=== PATIENT | female | born 1965 | race Caucasian/White ===

== ENCOUNTER 2019-05-18 16:43 | Emergency (ER) | payer OTHER, SELFPAY ==
[2019-05-18 17:03] VITALS: BP 155/70; PULSE 80; RESP 20; TEMP 36.6; O2SAT 100
--- NOTE | 2019-05-18 17:53 | ED.URI ---
HPI - URI/Sore Throat General Chief Complaint: Upper Respiratory Infection Stated Complaint: Cough and Congestion Time Seen by Provider: 05/18/19 17:53 Source: patient and RN notes reviewed Mode of arrival: ambulatory Limitations: no limitations History of Present Illness HPI Narrative: 54 year old female who presents to [facility] care with complaints of head congestion, nasal drainage, cough, some shortness of breath and wheezing for the past 2 days. Patient states long history of tobacco abuse states likely history of COPD/ emphysema. Patient states bilateral ear pain, and generalized body aches with increase feelings of being tired. Patient states that she did not have a flu immunization this season. Lungs clear to auscultation but decreased, no wheezing noted, SAO2 100% on room air, no fever, chills or sweats reported. MD elicited complaint: cough, rhinorrhea and nasal congestion Pertinent past history: COPD (states likely history of COPD) Onset (ago): day(s) (2) Consistency: progressively worsening Severity: moderate Pain scale (0-10): 5 Able to tolerate fluids by mouth: Yes Exacerbating factors: exertion, deep breaths and supine positioning Relieving factors: rest (helps) Associated symptoms: myalgias, rhinorrhea, nasal congestion, cough, shortness of breath, ear pain and other (states intermittent wheezing) Treatments prior to arrival: none Related Data Home Medications Medication Instructions Recorded Confirmed lisinopril 20 mg PO DAILY 05/18/19 05/18/19 ranitidine HCl 150 mg PO BID 05/18/19 05/18/19 Allergies Allergy/AdvReac Type Severity Reaction Status Date / Time No Known Allergies Allergy Verified 05/18/19 17:11 Review of Systems Review of Systems: Narrative: CONSTITUTIONAL: Denies fever, chills, or sweats. EYES: Denies visual changes, redness, or discharge. ENT:positive rhinorrhea, congestion,no sore throat, bilateral otalgia. CARDIOVASCULAR:no chest pain, palpitations, or edema. RESPIRATORY: Positive cough or dyspnea with exertion. GASTROINTESTINAL: Denies abdominal pain, nausea, vomiting, or diarrhea. GENITOURINARY: Denies dysuria or hematuria. SKIN: Denies rash or itching. MUSCULOSKELETAL: chronic back pain, joint pain, body aches NEUROLOGIC: Denies headache, numbness, or weakness. PSYCHIATRIC: Denies anxiety or depression. All systems reviewed & are unremarkable except as noted in HPI and below PMFSH Past Medical History Medical History (Updated 05/22/19 @ 20:58 by Tammi Christina NP) Chronic neck and back pain History of gastroesophageal reflux (GERD) Hypertension Hypothyroidism Surgical History Surgical History (Updated 05/22/19 @ 20:38 by Tammi Christina NP) H/O arthroscopy of right knee H/O repair of right rotator cuff History of bladder surgery History of dilatation and curettage Hx of tubal ligation Social History Social History (Updated 05/22/19 @ 20:57 by Tammi Christina NP) Smoking packs per day: 1 Smoking cigarettes per day: 20.0 Years smoked: 38 Smoking pack-years: 38.00 Smoking status: Current every day smoker Tobacco type: cigarettes Alcohol intake: current Living arrangements: with family Gender identity (if verbalized by the patient): Female Comments At time of signature, agree with nursing past medical, surgical, social and family history. There is no relevant family history pertinent to the presenting complaint Exam Narrative: Exam Narrative: GENERAL: Well-appearing, well-nourished, and in no acute distress. HEAD: Normocephalic, atraumatic. EYES: PERRLA and EOMI. ENT: Nares red, clear rhinorrhea no epistaxis. Mucous membranes moist.TM's normal with good light reflex, throat pink with post nasal drainage noted NECK: Supple.no lymphadenopathy CHEST: decreased to auscultation. No respiratory distress.voiced RODRIGUEZ, SAO2 100% on room air HEART: Regular rate and rhythm. No murmur heard. Normal peripheral pulses. ABDOMEN: Soft, nontender, nondistend
== END 2019-05-18 18:45 | disposition home or self-care (01) ==
PROVIDERS: Emergency Provider Registered Nurse
DX: J06.9 Acute upper respiratory infection, unspecified (principal); J44.9 Chronic obstructive pulmonary disease, unspecified; F17.210 Nicotine dependence, cigarettes, uncomplicated; K21.9 Gastro-esophageal reflux disease without esophagitis; I10 Essential (primary) hypertension; E03.9 Hypothyroidism, unspecified
CPT/HCPCS: 99203; G0463

== ENCOUNTER 2019-10-18 19:02 | Emergency (ER) | payer MEDICAID, SELFPAY ==
[2019-10-18 19:07] VITALS: BP 152/57; PULSE 94; RESP 16; TEMP 36.5; O2SAT 100
--- NOTE | 2019-10-18 19:11 | ED.FEMALEGU ---
HPI - Female Genitourinary General Chief complaint: Urogenital-Female Stated complaint: pain in left flank Time Seen by Provider: 10/18/19 19:14 Source: patient and RN notes reviewed Mode of arrival: ambulatory Limitations: no limitations History of Present Illness HPI Narrative: 54-year-old female presents with concern for acute left flank pain, nausea, vomiting. Reports pain started today. Reports pain is 10 out of 10. Denies dysuria, frequency, urgency. Reports she was having epigastric pain yesterday which prompted her doctor to order a COVID-19 test, she had that performed yesterday and does not have the results yet. She denies fever, reports feeling warm MD elicited complaint: flank pain and other Related Data Home Medications Medication Instructions Recorded Confirmed lisinopril 20 mg PO DAILY 05/18/19 05/18/19 famotidine 20 mg PO DAILY 10/18/19 10/18/19 Allergies Allergy/AdvReac Type Severity Reaction Status Date / Time No Known Allergies Allergy Verified 10/18/19 19:20 Review of Systems Review of Systems: Narrative: CONSTITUTIONAL: Denies malaise, chills, sweats, or fever. CARDIOVASCULAR: Denies chest pain, palpitations, or edema. RESPIRATORY: Denies cough or dyspnea. GASTROINTESTINAL: Reports abdominal pain, nausea, vomiting. Denies diarrhea, bloody, or mucous stools. GENITOURINARY: Denies dysuria or hematuria. Reports left flank pain MUSCULOSKELETAL: Denies myalgia. All systems reviewed & are unremarkable except as noted in HPI and below PMFSH Past Medical History Medical History (Updated 10/18/19 @ 19:30 by Aubree Garvin NP) Chronic neck and back pain History of gastroesophageal reflux (GERD) Hypertension Hypothyroidism Surgical History Surgical History (Updated 05/22/19 @ 20:38 by Tammi Christina NP) H/O arthroscopy of right knee H/O repair of right rotator cuff History of bladder surgery History of dilatation and curettage Hx of tubal ligation Social History Social History (Updated 05/22/19 @ 20:57 by Tammi Christina NP) Smoking packs per day: 1 Smoking cigarettes per day: 20.0 Years smoked: 38 Smoking pack-years: 38.00 Smoking status: Current every day smoker Tobacco type: cigarettes Alcohol intake: current Gender identity (if verbalized by the patient): Female Comments At time of signature, agree with nursing past medical, surgical, social and family history. There is no relevant family history pertinent to the presenting complaint Exam Narrative: Exam Narrative: GENERAL: Well-appearing, well-nourished, and in no acute distress. HEAD: Normocephalic. EYES: PERRLA, conjunctivae clear. NECK: Supple. No lymphadenopathy CHEST: Clear to auscultation. No respiratory distress. HEART: Regular rate and rhythm. No murmur heard. Normal peripheral pulses. ABDOMEN: Soft, mild epigastric tenderness upon palpation, nondistended, normal active bowel sounds, no palpable or pulsatile masses, no guarding. Left CVA tenderness SKIN: Warm, dry, no rash. NEURO: Alert and oriented x3. PSYCH: Normal mood and affect Course Course Emergency Course: Patient is aware of, understands and agrees to be seen in the emergency department. Patient agrees to f proceed directly to the emergency department. Portions of this record may have been created with voice recognition software Vital Signs Vital signs: Reviewed. Transfer Transfered to: [place] Transportation: Other Transfer rationale: Private vehicle Accepting physician: Geena Barreto Transfer comments: stable for transfer via private vehicle, being driven by friend MDM - Female Genitourinary MDM Narrative Medical decision making narrative: Exam findings warrant further evaluation emergency department; patient is non-toxic appearing and is in no distress. Patient is appropriate for transfer via private vehicle Differential Diagnosis Differential diagnosis: Likely urinary tract infection, cystitis and other (Nephrolithiasi
== END 2019-10-18 19:27 | disposition short-term general hospital (02) ==
PROVIDERS: Emergency Provider Nurse Practitioner; PCP Internal Medicine
DX: R10.9 Unspecified abdominal pain (principal); F17.210 Nicotine dependence, cigarettes, uncomplicated; K21.9 Gastro-esophageal reflux disease without esophagitis; I10 Essential (primary) hypertension; E03.9 Hypothyroidism, unspecified
CPT/HCPCS: 81003; 99212; G0463

== ENCOUNTER 2019-10-18 19:56 | Emergency (ER) | payer MEDICAID, SELFPAY ==
--- NOTE | ~2019-10-18 | CT_ITS ---
EXAMINATION: CT abdomen pelvis w con DATE: 10/18/2019 21:23 INDICATION: Left flank pain. TECHNIQUE: Computed tomography (CT) of the abdomen and pelvis was performed with 100 mL Omnipaque 350 intravenous contrast. Automated exposure control and iterative reconstruction technique were employe d. The dose-length product was 681.44 mGy-cm. COMPARISON: None. FINDINGS: The visualized portions of the lung bases demonstrate minimal atelectasis. No pleural effus ion. The heart size is normal. No pericardial effusion. There are cysts in the liver measuring up to 7 mm. The gallbladder, spleen, and pancreas are normal. There are masses in the adrenal glands measur ing up to 3.0 cm on the right measuring soft tissue attenuation. There are cysts in right kidney rosa uring up to 6 mm. There is a 1 mm stone in left kidney. There is diverticulosis of the colon without evidence of diverticulitis. There are no dilated loops of bowel. The appendix is normal. There are no pathologically enlarged lymph nodes. There is no free intraperitoneal fluid. There is mild thoracolu mbar spondylosis. IMPRESSION: 1. Bilateral adrenal masses measuring up to 3.0 cm on the right. In the absence of known malignancy, these findings are likely adenomas. Consider abdomen CT without and with contrast by the adrenal mass protocol. Reviewed, dictated and finalized at location A. IMPRESSION: 1. Bilateral adrenal masses measuring up to 3.0 cm on the right. In the absence of known malignancy, these findings are likely adenomas. Consider abdomen CT w ithout and with contrast by the adrenal mass protocol.
--- NOTE | ~2019-10-18 | XR_ITS ---
EXAMINATION: XR abdomen/kub 1V DATE: 10/18/2019 21:23 INDICATION: Left flank pain. TECHNIQUE: A supine view of the abdomen on 2 radiographs was obtained. COMPARISON: CT abdomen and pelvis 10/19/2019 FINDINGS: There are no dilated loops of bowel. There are phleboliths in the pelvis. There is contrast in the ureters and bladder. IMPRESSION: 1. Normal bowel gas pattern. Reviewed, dictated and finalized at location A.
--- NOTE | ~2019-10-18 | XR_ITS ---
EXAMINATION: XR chest 2V DATE: 10/18/2019 21:24 INDICATION: Shortness of breath. Chest tightness. TECHNIQUE: Frontal and lateral views of the chest were obtained. COMPARISON: Chest 2 views 05/12/2005, CT abdomen and pelvis 10/19/2019 FINDINGS: The chest demonstrates clear lungs without pneumonia, pleural effusion, or pneumothorax. Th e heart size is normal. There is a suture anchor in right humeral head. IMPRESSION: 1. No acute cardiopulmonary disease. Reviewed, dictated and finalized at location A.
[2019-10-18 19:58] VITALS: BP 132/71; PULSE 88; RESP 18; TEMP 36.7; O2SAT 100
--- NOTE | 2019-10-18 20:07 | ED.GENADULT ---
HPI - General Adult General Chief complaint: Abdominal Pain Stated complaint: abd pain Time Seen by Provider: 10/18/19 20:07 Source: patient Mode of arrival: ambulatory Limitations: no limitations History of Present Illness HPI narrative: 54-year-old female patient presents to the express care with complaints of left flank pain, abdominal pain and some shortness of breath that started suddenly about 2:00 today. Patient did go to the urgent care today and they did test her urine however they sent her over here with concerns for kidney stones. Patient states that she had some nausea vomiting that started about 2 days ago and a little bit of abdominal pain but the abdominal pain got increasingly worse today. Patient states she did try and take some Tylenol and Advil when the pain first started which did not help. Patient states that she did get tested for COVID yesterday due to her complaints of nausea, vomiting. Patient states that she is having chest pain at times and feels like there is a bubble in her chest. Patient states that at times does radiate to her back and having a lot of pain to the left flank that radiates to the abdomen. Patient denies any pain with urination. Related Data Home Medications Medication Instructions Recorded Confirmed lisinopril 20 mg PO DAILY 10/18/19 10/18/19 Allergies Allergy/AdvReac Type Severity Reaction Status Date / Time No Known Allergies Allergy Verified 10/18/19 20:09 Review of Systems Review of Systems: Narrative: CONSTITUTIONAL: Denies fever, chills, or sweats. EYES: Denies visual changes, redness, or discharge. ENT: Denies rhinorrhea, congestion, sore throat, or otalgia. CARDIOVASCULAR: Positive chest pain, denies palpitations, or edema. RESPIRATORY: Denies cough or dyspnea. GASTROINTESTINAL: Positive abdominal pain, nausea, vomiting, denies diarrhea. GENITOURINARY: Denies dysuria or hematuria. Left flank pain SKIN: Denies rash or itching. MUSCULOSKELETAL: Denies back pain, joint pain, or myalgia. NEUROLOGIC: Denies headache, numbness, or weakness. PSYCHIATRIC: Denies anxiety or depression. PMFSH Comments At the time of my signature I agree with nursing past medical history, surgical, social, and family history. There is no relevant family history pertinent to the presenting complaint. Exam Narrative: Exam Narrative: GENERAL: Well-appearing, well-nourished, and in no acute distress. HEAD: Normocephalic, atraumatic. EYES: PERRLA and EOMI. ENT: Nares clear, no rhinorrhea or epistaxis. Mucous membranes moist. NECK: Supple. No lymphadenopathy CHEST: Clear to auscultation. No respiratory distress. Patient able talk in clear complete sentences. HEART: Regular rate and rhythm. No murmur heard. Normal peripheral pulses. ABDOMEN: Soft, flat, nondistended. Patient has tenderness on palpation to the left upper quadrant, left lower quadrant and right upper quadrant with guarding, no rebound tenderness, or rigid. No pulsatilla masses. Bowel sounds present in all four quadrants. No organomegaly. Negative Carter?s sign. No periumbicial tenderness. No Supra public tenderness or distension. Good femoral pulses bilaterally. No hernia noted. No scars or surface trauma. CVA tenderness on the left on percussion EXTREMITIES: Normal range of motion. No edema. SKIN: Warm, dry, no rash. NEURO: No focal deficits. Alert and oriented x3. Course Reevaluation(s) Reevaluation #1: Reevaluated patient. Patient states that she is still in pain and that the morphine did not help. Discussed with patient her CT findings. Patient states that she does have known nodules to lungs, kidneys and liver. Patient states that she does follow-up with her doctor with this and states that she is actually supposed to be having a CT on her lungs next week. Discussed with patient it does show that she has a small kidney stone that is nonobstructing to the left kidney. Discussed with her this is what is most likely causing her pa
--- NOTE | 2019-10-18 20:16 | ECG_ITS ---
Measurements Intervals [place] Rate: 80 P: 60 TN: 148 QRS: 68 QRSD: 83 T: 54 QT: 362 QTc: 418 Interpretive Statements SINUS RHYTHM BORDERLINE ST ABNORMALITY- ANTEROLATERAL LEADS BORDERLINE ECG Electronically Signed On 10-18-2019 21:20:10 CDT by Cj Priest D.O.
[2019-10-18] MEDS: SODIUM CHLORIDE 0.9% IV 1,000 ML 999 ML IV CONT (20:27)
[2019-10-18] MEDS: ONDANSETRON HCL ODT 4 MG TABLET PO (20:28)
[2019-10-18] MEDS: MORPHINE SULFATE 4 MG/ML INJ IV PUSH (20:29)
[2019-10-18 20:31] LABS: Basophils Absolute Auto 0.1 K/mm3 (0.0-0.1); Basophils Percent Auto 0.7 % (0.2-1.2); Eosinophils Absolute Auto 0.1 K/mm3 (0-0.3); Eosinophils Percent Auto 0.8 % (0-4.4); Hematocrit 45.3 % (37.0-47.0); Hemoglobin 14.9 g/dL (12.0-15.0); Immature Granulocyte Absolute 0.01 K/mm3 (0.00-0.031); Immature Granulocyte Percent A 0.1 % (0-0.5); Lymphocytes Absolute Auto 2.29 K/mm3 (0.9-3.2); Lymphocytes Percent Auto 27.3 % (18.3-44.2); Mean Corpuscular HGB Conc 32.9 g/dl (32-36); Mean Corpuscular Hemoglobin 30.2 pg (26-34); Mean Corpuscular Volume 91.7 fl (80-100); Mean Platelet Volume 10.4 fl (7.4-10.4); Monocytes Absolute Auto 0.7 K/mm3 (0.1-0.6); Monocytes Percent Auto 8.7 % (2.6-8.5); Neutrophils Absolute Auto 5.2 K/mm3 (1.3-6.7); Neutrophils Percent Auto 62.4 % (45.5-73.1); Platelet Count Result 262 k/mm3 (150-375); Red Blood Count 4.94 M/mm3 (4.2-5.4); Red Cell Distribution Width 13.4 % (11.5-14.5); White Blood Count 8.4 K/mm3 (4.5-10.0)
[2019-10-18 20:42] LABS: Alanine Aminotransferase 16 U/L (4-35); Albumin Level 4.5 g/dL (3.5-5.1); Alkaline Phosphatase 86 U/L (38-126); Aspartate Amino Transferase 24 U/L (14-36); Bilirubin,Total 0.2 mg/dL (0.2-1.3); Blood Urea Nitrogen 25 mg/dL (7-17); Calcium 9.7 mg/dL (8.4-10.2); Carbon Dioxide 26 mmol/L (22-30); Chloride 105 mmol/L (98-107); Estimated CRCL calculation 85 ml/min; Estimated Glomerular Filt Rate > 60; Glucose 94 mg/dL (65-105); Lipase 98 U/L (23-300); Sodium 140 mmol/L (137-145)
[2019-10-18 20:47] LABS: Prothrombin Time 12.5 Seconds (11.1-14.7)
[2019-10-18 20:48] LABS: Partial Thromboplastin Time 24.6 SECONDS (22.3-36.8)
[2019-10-18 20:54] LABS: Troponin I < 0.012 ng/mL (0.000-0.034)
[2019-10-18 20:59] LABS: D Dimer 0.27 ug/mL (<0.48)
--- NOTE | 2019-10-18 21:00 | PC.NURSE ---
pt up to restroom independently at this time to attempt to provide UA sample.
[2019-10-18 21:23] LABS: Add Urine Microscopic? NO; Appearance Urine Clear (Clear); Bilirubin Urine Negative (Negative); Blood Urine Negative (Negative); Color Urine Yellow (Yellow); Glucose Urine UA Negative (Negative); Ketones Urine Negative (Negative); Leukocyte Esterase Ur Negative LEU/UL (Negative); Nitrate Urine Negative (Negative); Protein Urine Negative (Negative); Specific Grav Ur 1.027 (1.001-1.035); Urobilinogen Urine Negative mg/dL (<2.0)
[2019-10-18 22:16] VITALS: BP 151/94; PULSE 83; RESP 17; O2SAT 100
== END 2019-10-18 22:48 | disposition home or self-care (01) ==
PROVIDERS: Emergency Provider Nurse Practitioner Family
DX: N20.0 Calculus of kidney (principal); R94.31 Abnormal electrocardiogram [ECG] [EKG]; E27.8 Other specified disorders of adrenal gland
CPT/HCPCS: 36415; 71046; 74018; 74177; 80053; 81003; 81025; 83690; 84484; 85025; 85380; 85610; 85730; 93005; 96361; 96374; 99284; A9270; J2270; J7030; Q9967

== ENCOUNTER 2020-06-29 10:41 | Emergency (ER) | payer OTHER, SELFPAY ==
--- NOTE | ~2020-06-29 | XR_ITS ---
EXAMINATION: XR chest 2V DATE: 06/29/2020 11:25 INDICATION: Congestion and cough, post COVID TECHNIQUE: PA and lateral views of the chest are obtained. COMPARISON: 10/18/2019 FINDINGS: The lungs are free of acute opacities. There is no pleural effusion or pneumothorax. The ca rdiomediastinal silhouette is normal. There is mild thoracic spondylosis. IMPRESSION: 1. No acute cardiopulmonary abnormality. Reviewed, dictated and finalized at location A.
[2020-06-29 11:10] VITALS: BP 140/66; PULSE 87; RESP 20; TEMP 36.6; O2SAT 100
--- NOTE | 2020-06-29 11:27 | ED.GENADULT ---
HPI - General Adult General Chief complaint: Upper Respiratory Infection Stated complaint: something in eye and coughing Time Seen by Provider: 06/29/20 11:28 Source: patient and RN notes reviewed Mode of arrival: ambulatory Limitations: no limitations History of Present Illness HPI narrative: 55-year-old female presents with complaints of upper respiratory infection symptoms, sore throat, cough, intermittent dyspnea, wheezing, and headaches (not the worst of his life) for the past 3 days. Maru reports symptoms are consistent would have not sought care if eye was not a problem. Dry cough with chest congestion. Rhinorrhea and nasal congestion. Exacerbating factors consist of smoke exposure. No high fevers or sweats. No nausea, vomiting, and abdominal pain. Denies chest pain, coughing up blood, jaw pain, dental pain, facial pain, foreign body sensation, and rash. The patient reports she was diagnosed with COVID-19 March 13, 2020. The patient reports he is not waiting for the results of a COVID-19 lab test. The patient reports he do not have weakness, myalgia, or fatigue. The patient reports she do not have a worsening cough. The patient reports he do not have any loss of smell or taste or diarrhea. Denies recent traveling. Denies concerns for COVID-19 or exposures been home with limited outdoor exposure except for essential household needs, works, and return home. At this time, patient is not suspected of having COVID-19. Complains of left eye irritation, redness, burning, and foreign body sensation for the past 4 days. Maru reports eye irritation with improvement until putting contacts in this morning and irritation increased. Irrigated without relief. No copious drainage. Exacerbating factors consists of light exposure. No relieving factors. Wears hard contact lenses. URI symptoms as described above. No blurred vision, double vision, or pain of eye with movement. Some parts of this dictation were generated by voice recognition software and may contain typographical and/or grammatical inaccuracies. Related Data Home Medications Medication Instructions Recorded Confirmed lisinopril 20 mg PO DAILY 10/18/19 06/29/20 Allergies Allergy/AdvReac Type Severity Reaction Status Date / Time No Known Allergies Allergy Verified 06/29/20 10:54 Review of Systems Review of Systems: Narrative: CONSTITUTIONAL: Complains of fatigue. Denies chills, sweats. EYES: Denies visual changes, redness, discharge. ENT: Complains of rhinorrhea, congestion, sore throat, LT eye irritation, redness, tearing. Denies otalgia. CARDIOVASCULAR: Denies chest pain, palpitations, edema. RESPIRATORY: Complains of dyspnea, wheezing, cough. GASTROINTESTINAL: Denies abdominal pain, nausea, vomiting, diarrhea. GENITOURINARY: Denies dysuria, hematuria, abnormal discharge. SKIN: Denies rash or itching. MUSCULOSKELETAL: Denies acute back pain, joint pain, myalgia. NEUROLOGIC: Denies numbness or focal weakness. PSYCHIATRIC: Denies anxiety or depression. Complains of intermittent POE. All systems reviewed & are unremarkable except as noted in HPI and below. [facility] Past Medical History Medical History Hypertension Smoker Surgical History Surgical History (Updated 06/29/20 @ 12:20 by OSKAR Lopez) No significant past surgical history Family History Family History (Updated 06/29/20 @ 12:21 by OSKAR Lopez) Father Alzheimer's dementia Mother , related to complication of Xarelto-brain bleed Cerebrovascular accident Social History Social History (Updated 06/29/20 @ 12:22 by OSKAR Lopez) Years smoked: 41 Smoking status: Current every day smoker Tobacco type: cigarettes Second hand tobacco smoke exposure: No Alcohol intake: never Substance use: current Substance use type: marijuana Living arrangements: with family Occupation/Education: occupation Gender identity (if ve
--- NOTE | 2020-06-29 11:31 | PC.NURSE ---
VISUAL ACUITY OF BOTH EYE TOGETHER 20/50
[2020-06-30 15:25] LABS: SARS-CoV-2 RNA PCR Negative
== END 2020-06-29 12:35 | disposition home or self-care (01) ==
PROVIDERS: Emergency Provider Nurse Practitioner Family; PCP Internal Medicine
DX: B34.9 Viral infection, unspecified (principal); H10.32 Unspecified acute conjunctivitis, left eye; Z20.822 Contact with and (suspected) exposure to COVID-19; F17.219 Nicotine dependence, cigarettes, with unspecified nicotine-induced disorders; I10 Essential (primary) hypertension
CPT/HCPCS: 71046; 87081; 87804; 87880; 99213; C9803; G0463; U0003; U0005

== ENCOUNTER 2021-08-22 14:31 | Emergency (ER) | payer OTHER, SELFPAY ==
[2021-08-22] VITALS (9 sets, daily range): BP systolic 112–147; BP diastolic 55–73; PULSE 70–93; RESP 12–28; TEMP 36.4; O2SAT 98–100
[2021-08-22 15:00] LABS: Basophils Absolute Auto 0.1 K/mm3 (0.0-0.1); Basophils Percent Auto 0.7 % (0.2-1.2); Eosinophils Percent Auto 0.6 % (0-4.4); Hematocrit 42.5 % (37.0-47.0); Hemoglobin 13.8 g/dL (12.0-15.0); Immature Granulocyte Absolute 0.01 K/mm3 (0.00-0.031); Immature Granulocyte Percent A 0.1 % (0-0.5); Lymphocytes Absolute Auto 2.06 K/mm3 (0.9-3.2); Lymphocytes Percent Auto 30.7 % (18.3-44.2); Mean Corpuscular HGB Conc 32.5 g/dl (32-36); Mean Corpuscular Hemoglobin 29.8 pg (26-34); Mean Corpuscular Volume 91.8 fl (80-100); Mean Platelet Volume 10.1 fl (7.4-10.4); Monocytes Absolute Auto 0.4 K/mm3 (0.1-0.6); Monocytes Percent Auto 6.5 % (2.6-8.5); Neutrophils Absolute Auto 4.1 K/mm3 (1.3-6.7); Neutrophils Percent Auto 61.4 % (45.5-73.1); Platelet Count Result 249 k/mm3 (150-375); Red Blood Count 4.63 M/mm3 (4.2-5.4); Red Cell Distribution Width 14.3 % (11.5-14.5); White Blood Count 6.7 K/mm3 (4.5-10.0)
[2021-08-22 15:03] LABS: Add Urine Microscopic? NO; Appearance Urine Clear (Clear); Bilirubin Urine Negative (Negative); Blood Urine Negative (Negative); Color Urine Yellow (Yellow); Glucose Urine UA Negative (Negative); Ketones Urine Negative (Negative); Leukocyte Esterase Ur Negative LEU/UL (Negative); Nitrate Urine Negative (Negative); Protein Urine Negative (Negative); Specific Grav Ur >= 1.030 (1.001-1.035); Urobilinogen Urine 0.2 mg/dL (<2.0); pH Urine 5.5 (5.0-9.0)
[2021-08-22 15:06] LABS: Alanine Aminotransferase 18 U/L (6-35); Albumin Level 4.4 g/dL (3.5-5.1); Alkaline Phosphatase 77 U/L (38-126); Anion Gap 8 mmol/L (8-16); Aspartate Amino Transferase 26 U/L (14-36); Bilirubin,Total 0.2 mg/dL (0.2-1.3); Blood Urea Nitrogen 23 mg/dL (7-17); Calcium 9.3 mg/dL (8.4-10.2); Carbon Dioxide 27 mmol/L (22-30); Chloride 107 mmol/L (98-107); Estimated CRCL calculation 85 ml/min; Estimated Glomerular Filt Rate > 60; Glucose 120 mg/dL (65-110); Lipase 86 U/L (23-300); Potassium 3.8 mmol/L (3.4-5.0); Sodium 142 mmol/L (137-145)
--- NOTE | 2021-08-22 17:24 | ED.GENADULT ---
HPI - General Adult General Chief complaint: Headache Stated complaint: neck pain, bad headache Time Seen by Provider: 08/22/21 17:15 Source: patient Mode of arrival: ambulatory Limitations: no limitations History of Present Illness HPI narrative: Patient is a 56-year-old female who presents to the ED with report of headache and muscle cramping. Patient reports she was sick 1 month ago with muscle cramps and headaches. She states she saw her doctor at that time who thought her headaches could be contributed to her high blood pressure. She was started on lisinopril and states her headaches have improved. She was tested for COVID at that time and was negative. Patient reports her muscle pain has persisted. She complains of muscle cramping and pain in her bilateral shoulders and arms. She has been taking Tylenol and Aleve for this at home without much relief. She does note she has known rotator cuff tears bilaterally. She has seen Dr. Lal for this in the past. She also reports she was told she would need neck surgery at some point and has seen a spinal surgeon in [place], but they did not take her insurance. Over the last 3 days, she has had a recurrent headache, sinus congestion, nausea and 1 episode of vomiting. No abdominal pain, diarrhea, rectal bleeding, hematemesis. Reports chronic cough but denies sore throat or runny nose. She is a smoker. Denies urinary symptoms. Occasional dizziness, denies vision changes, focal weakness, numbness. No chest pain or shortness of breath. Related Data Home Medications Medication Instructions Recorded Confirmed lisinopril 20 mg PO DAILY 10/18/19 06/29/20 Allergies Allergy/AdvReac Type Severity Reaction Status Date / Time No Known Allergies Allergy Verified 08/22/21 18:32 Review of Systems Review of Systems: CONSTITUTIONAL: Denies fever, chills, or sweats. EYES: Denies visual changes. ENT: Reports sinus congestion. Denies sore throat, rhinorrhea. CARDIOVASCULAR: Denies chest pain. RESPIRATORY: Reports chronic cough. Denies dyspnea. GASTROINTESTINAL: Reports N/V. Denies abdominal pain, rectal bleeding, constipation, diarrhea. GENITOURINARY: Denies dysuria or hematuria. MUSCULOSKELETAL: Reports myalgias in BUE. NEUROLOGIC: Reports headache, dizziness. Denies numbness, focal weakness. All systems reviewed & are unremarkable except as noted in HPI and below PMFSH Past Medical History Medical History Hypertension Smoker Surgical History Surgical History (Updated 08/22/21 @ 18:12 by Katina Lind PA-C) No significant past surgical history S/P trigger finger release Family History Family History (Updated 06/29/20 @ 12:21 by OSKAR Lopez) Father Alzheimer's dementia Mother , related to complication of Xarelto-brain bleed Cerebrovascular accident Social History Social History Years smoked: 41 Smoking status: Current every day smoker Tobacco type: cigarettes Second hand tobacco smoke exposure: No Alcohol intake: never Substance use: current Substance use type: marijuana Gender identity (if verbalized by the patient): Female Exam Narrative: GENERAL: Well appearing, well-nourished, non-toxic, in no acute distress. HEAD: Normocephalic, atraumatic. THROAT: Pharynx clear, no exudate. MMs moist. NECK: Supple. No adenopathy, no masses. No midline cervical spinal tenderness to palpation. Mild L sided paraspinal muscle tenderness. Full range of motion. No meningeal signs. RESPIRATORY: Airway patent, respirations nonlabored. Clear to auscultation bilaterally, no rales, rhonchi, wheezing. CARDIOVASCULAR: Regular rate and rhythm without murmurs, rubs, or gallops. Peripheral pulses 2+ and equal bilaterally. ABDOMINAL: Soft, nontender, nondistended, no hepatosplenomegaly. Normoactive BS. MUSCULOSKELETAL: Moves all extremities. Strength/ROM intact without gross deformities. Full no
--- NOTE | 2021-08-22 18:10 | PC.NURSE ---
Explained to pt need to collect covid swab, states I just had a negative one, I'm not doing it again .
[2021-08-22] MEDS: SODIUM CHLORIDE 0.9% IV 1,000 ML 999 ML IV CONT (18:30)
--- NOTE | 2021-08-22 19:15 | PC.NURSE ---
Report to PRIYA Guzmán, to continue care.
--- NOTE | 2021-08-22 19:38 | PC.NURSE ---
Patient refused COVID SWAB and ortho blood pressure.
== END 2021-08-22 21:01 | disposition home or self-care (01) ==
PROVIDERS: Emergency Medicine; Physician Assistant; Emergency Provider General Practice; PCP Internal Medicine
DX: R25.2 Cramp and spasm (principal); I10 Essential (primary) hypertension; M75.102 Unspecified rotator cuff tear or rupture of left shoulder, not specified as traumatic; M75.101 Unspecified rotator cuff tear or rupture of right shoulder, not specified as traumatic; F17.210 Nicotine dependence, cigarettes, uncomplicated
CPT/HCPCS: 36415; 80053; 81003; 81025; 83690; 83735; 85025; 96365; 99284; J0131; J7030